=== PATIENT | male | born 1950 | race Caucasian/White ===

== ENCOUNTER 2017-05-10 12:25 | Observation (INO) ==
[2017-05-10] MEDS ORDERED: MORPHINE SULFATE 4mg INJECTION IVP PRN (13:10)
[2017-05-10 13:11] VITALS: BMI 23.8
[2017-05-10] MEDS ORDERED: LR 1,000 ML IV SCH (13:15)
[2017-05-10] MEDS ORDERED: SALINE FLUSH 10ml SYRINGE IVF PRN (13:24)
[2017-05-10] MEDS ORDERED: IOHEXOL 300mg/ml 50ml INJECTION ONE ×2 (15:46→17:52)
[2017-05-10] MEDS ORDERED: GENTAMICIN 80mg/2ml INJECTION ONE ×2 (15:47→17:52)
[2017-05-10] MEDS ORDERED: LEVOFLOXACIN PB 500 MG/100 ML BAG IV SCH (16:00)
--- NOTE | 2017-05-10 17:31 | Anesthesia Preoperative Report ---
Anesthesia Preoperative Record - Date and Time Date: 05/10/17 Preoperative Diagnosis: left kidney stone Proposed Procedure: Cysto with left stent placement NPO Since Date: 05/10/17 NPO Since Time: 07:00 Allergies/Adverse Reactions: Allergies Allergy/AdvReac Type Severity Reaction Status Date / Time Penicillins Allergy Severe Hives Verified 05/10/17 12:53 - Vital Signs Vital Signs: Temperature 98.4 F 05/10/17 16:52 Pulse Rate 68 05/10/17 16:52 Respiratory Rate 16 05/10/17 16:52 Blood Pressure 134/88 05/10/17 16:52 Pulse Oximetry 98 05/10/17 16:52 Oxygen Delivery Method Room Air Height and Weight: Height 5 ft 4 in Weight 63.1 kg Body Mass Index 23.8 - Medications Inpatient Medications: Current Medications Lactated Ringer's (Lactated Ringers) 1,000 mls @ 125 mls/hr IV .Q8H SHAWN Last Infusion: 05/10/17 16:40 Dose: 125 mls/hr Levofloxacin/Dextrose (Levaquin Premix) 500 mg in 100 mls @ 100 mls/hr IV PREOP SHAWN Stop: 05/11/17 23:00 Morphine Sulfate (Morphine Sulfate Inj) 1 - 3 mg IVP Q1H PRN PRN Reason: Pain Sodium Chloride (Iv Flush) 10 - 80 ml IVF PRN PRN PRN Reason: Flushing Home Medications: Home Medications Medication Instructions Recorded Confirmed Type Ciprofloxacin/Ciprofloxa HCl 500 mg PO BID 05/10/17 05/10/17 History [Ciprofloxacin ER 500 mg Tablet] Oxycodone/APAP 5/325 [Percocet 1 tab PO Q4H PRN 05/10/17 05/10/17 History 5/325] Tamsulosin [Flomax] 0.4 mg PO DAILY 05/10/17 05/10/17 History - Medical History Respiratory: DENIES: Asthma, Bronchitis, Chronic Obstructive Pulmonary Disease (COPD), Dyspnea, Orthopnea, Pulmonary Embolism, Pneumonia, Upper Respiratory Infection, Pulmonary Edema, Sleep Apnea, Tuberculosis, Other Cardiovascular: DENIES: Abnormal EKG, Angina, Arrhythmia, Congestive Heart Failure, Coronary Artery Disease, Heart Murmur, Hypertension, Hypotension, High Cholesterol, Myocardial Infarction, Rheumatic Fever, Valvular Heart Disease, Other Gastrointestional: DENIES: Obstructive Bowel, Hepatitis, Cirrhosis, Nausea or Vomiting Present, Gastroesophageal Reflux Disease, Gastrointestinal Bleeding, Hiatal Hernia, Ulcer , Morbid Obesity, Other Neuro/Musculoskeletal: Denies: HX.MS.OSAR, Back Problems, Cerebrovascular Accident, Depression, Headaches, Loss of Consciousness, Muscle Weakness, Neuromuscular Disorder, Paralysis, Paresthesia, Syncope, Seizures, Other Renal/Endocrine: DENIES: Diabetes Mellitus Type 1, Diabetes Mellitus Type 2, Renal Failure, Dialysis, Thyroid Disease, Weight Loss, Weight Gain, Other Other History: DENIES: Anesthesia Reactions, Now, Blood Transfusions, Chemotherapy , Cancer, Hemophilia, Malignant Hyperthermia, Sickle Cell Disease, Other - Social History Smoking Status: Never smoker Substance Use Type: does not use - Pertinent Findings Laboratory: CBC and BMP 05/10/17 13:50 05/10/17 13:50 BMP 05/10/17 13:50 Sodium 141 Potassium 3.6 Chloride 109 H Carbon Dioxide 25 BUN 21.0 H Creatinine 0.8 Glucose 82 Calcium 9.3 EKG Rhythm: Normal Sinus Rhythm - Physical Exam Respiratory Exam: Present: lungs clear, bilateral breath sounds equal Cardiovascular Exam: Present: regular rate and rhythm, no murmur - Airway Assessment Mallampati Score: II TMD: 3 Fingerbreadths Neck Extension: good Teeth: patial upper dentures, partial lower dentures Overall Assessment: no airway concerns - ASA ASA Score: 2 - Plan Anesthesia: General TIVA - Discussion Discussion: Discussed risks/options/alternatives of anesthesia and questions answered. Patient consents. Nursing pain assessment noted. Present for Discussion: other (none) Attestation Statement: Prior to the delivery of any anesthetic medication, I examined the patient, developed the plan, obtained the patient's consent and discussed the risk and benefits of the procedure with the patient/guardian. - Additional Information Seen by Anesthesia: Yes
[2017-05-10] MEDS ORDERED: PROPOFOL 500 MG/50 ML VIAL IV ONE (17:36)
[2017-05-10] MEDS ORDERED: FentaNYL 100 MCG/2 ML INJECTION ONE (17:36)
[2017-05-10] MEDS ORDERED: PROPOFOL 20 ML ONE (17:37)
--- NOTE | 2017-05-10 18:12 | Anesthesia Postoperative Note ---
- Date and Time Date: 05/10/17 Time: 18:12 - Status Patient Participated in Evaluation: Patient Participated in Person Vital Signs: Temperature 98.1 F 05/10/17 18:06 Pulse Rate 80 05/10/17 18:06 Respiratory Rate 11 05/10/17 18:06 Blood Pressure 98/62 05/10/17 18:06 Pulse Oximetry 94 05/10/17 18:06 Oxygen Delivery Method Room Air Respiratory Function: Airway Patent Cardiovascular Function: Regular Pulse EKG Rhythm: Normal Sinus Rhythm Mental Status: Alert and Oriented Hydration: IV Infusing Complications During Recover: None Apparent - Follow-Up Instructions Instructions: Per Surgeon
[2017-05-10] MEDS ORDERED: IOHEXOL IR ONE (18:42)
[2017-05-10] MEDS ORDERED: GENTAMICIN IR ONE (18:42)
[2017-05-10] MEDS ORDERED: Hyoscyamine 0.125 MG SL tab SL PRN (18:55)
[2017-05-10] MEDS ORDERED: PHENAZOPYRIDINE 95 MG TABLET PO PRN (18:55)
[2017-05-10] MEDS ORDERED: BELLADONNA-OPIUM 16.2 MG/60 MG SUPPOSITORY PR PRN (18:56)
[2017-05-10] MEDS ORDERED: HYDROCODONE/APAP 5mg/325mg TABLET PO PRN (18:57)
[2017-05-10] MEDS ORDERED: MORPHINE SULFATE 2mg INJECTION IVP PRN (19:00)
[2017-05-10] MEDS ORDERED: ONDANSETRON 4 MG/2 ML INJECTION IVP PRN (19:15)
[2017-05-10 20:56] VITALS: RESP 20; TEMP 98.1
[2017-05-10 21:44] VITALS: BP 136/67; PULSE 75; O2SAT 95
--- NOTE | 2017-05-11 08:40 | Remote Fluorsocopy Report ---
Indication: LT KIDNEY STONE ,LT RETROGRADE/STENT PROCEDURE: RF retrograde pyelogram LT: Encounter: Initial Comparison: None Findings: Eight fluoroscopic spot images are submitted for interpretation. Images show a left-sided double-J stent which projects in appropriate position. Contrast in the left renal collecting system is also noted along with injection into the left ureter which shows a filling defect in the mid to distal aspect on two of the images. Impression: Fluoroscopy as above. Fluoroscopy time is 138.8 seconds. Fluoroscopy dose is 4460 mRad. .
--- NOTE | 2017-05-11 13:12 | Operative Note ---
DATE OF OPERATION 05/10/2017 PREOPERATIVE DIAGNOSIS Left ureteral stone, left ureteral obstruction, left ureteral colic and hematuria. POSTOPERATIVE DIAGNOSIS Left ureteral stone, left ureteral obstruction, left ureteral colic and hematuria. OPERATION PERFORMED Cystoscopy with left retrograde pyelogram and insertion of double pigtail stent 6-[place] x 22 cm. SURGEON Fercho Pereyra MD INDICATION Mr. Sanchez is a 66-year-old man with sudden onset left-sided flank pain a week ago. Evaluation showed a 7 mm stone in the left mid ureter and additional bilateral nonobstructing kidney stones. Patient continues with intermittent pain with nausea and hematuria. Patient was brought in to have stent insertion and possibly retrieve the stone ureteroscopically. DESCRIPTION OF OPERATION Patient was taken to the cystoscopy suite and under general anesthesia, patient was placed in the dorsal lithotomy position and prepped and draped in the usual fashion for cystoscopy. A #21 [place] cystoscope was inserted into the bladder under direct vision. Bladder shows mild trabeculation but no bladder tumor, foreign body or stone. Ureteral orifices were normal bilaterally in location and contour. Left ureteral orifice was somewhat small. Bladder outlet was minimally obstructing from small prostate gland. Urethra was free of stricture. Fluoroscopy was used to scan the abdomen but could not pick out the stone in the ureter. There was a distinct stone in the left lower pole calyceal area. This was also seen by the CT scan. Left ureteral orifice was sealed with a 5-[place] open-ended ureteral catheter but with difficulty due to the size of the orifice. Contrast was injected under fluoroscopy. Ureter was not dilated nor was it obstructed. There is an impression of a filling defect in the mid ureter. Renal pelvis is quite prominent and slight blunting of the calyceal system was found. The filling defect seen at least 7 mm if not larger. A guidewire was inserted into the left renal pelvis under fluoroscopic guidance. Over this guidewire, a 5-[place] open-ended ureteral catheter was able to be inserted past the ureteral orifice and advanced proximally. Guidewire was then advanced into the renal pelvis over the ureteral catheter and ureteral catheter removed. Over the guidewire, a 6-[place] x 22 cm double pigtail stent was loaded and placed into the left renal pelvis under fluoroscopic guidance. Stent position was confirmed fluoroscopically and cystoscopically. Bladder was emptied out and the cystoscope removed. The nylon string attached to the stent was trimmed at the meatus. Patient was then taken to the recovery room in stable condition. SUE
[2017-05-11] MEDS ORDERED: LEVOFLOXACIN PB 500 MG/100 ML BAG IV SCH (16:31)
== END 2017-05-10 21:25 | disposition home or self-care (01) ==
LOC: SRG
PROVIDERS: ADMIT Specialist; ATTEND Specialist